=== PATIENT | male | born 1930 | race Caucasian/White ===

== ENCOUNTER → 2017-06-23 | Outpatient (CLI) | payer MEDICARE ==
[2017-06-23 12:52] LABS: HCT 43.3 % (39.0-53.0); HGB 13.3 gm/dL (13.0-17.5); Hypochromasia Slight; MCH 30.9 pg (25.0-35.0); MCHC 30.8 g/dL (31.0-37.0); MCV 100.4 fL (80.0-100.0); Macrocytosis Slight; Mean Platelet Volume 8.1; Platelet Count 180 k/uL (150-450); RBC 4.31 m/uL (4.30-5.90); RDW 14.3 % (11.5-15.5); WBC 5.5 k/uL (3.8-10.6)
[2017-06-23 12:55] LABS: Calcium 9.2 mg/dL (8.4-10.2); Potassium 5.2 mmol/L (3.5-5.1)
== END | disposition home or self-care (01) ==
LOC: LABWHC1 12:01
PROVIDERS: ATTEND Internal Medicine Clinical Cardiac Electrophysiology
DX: I50.9 Heart failure, unspecified (principal)
CPT/HCPCS: 36415; 80048; 85027

== ENCOUNTER 2017-06-24 06:13 | Day surgery (SDC) | payer MEDICARE ==
[2017-06-23 09:35] VITALS: BMI 29.9
[~2017-06-24 06:13] MED LIST: ceFAZolin 1,000 MG in SODIUM CHLORIDE 0.9% IRRIGATIO 250 ML IRRIGATION ONE; ceFAZolin IN SWFI 2 GM/20 ML SYRINGE IVP ONE
[2017-06-24] MEDS ORDERED: LACTATED RINGERS 1,000 ML IV SCH (06:15)
[2017-06-24] MEDS ORDERED: SODIUM CHLORIDE 0.9% 500 ML IV ONE (07:22)
[2017-06-24] MEDS ORDERED: fentaNYL (PF) 50 MCG/ML 2 ML AMP ONE (07:22)
[2017-06-24] MEDS ORDERED: MIDAZOLAM 2 MG/2 ML VIAL ONE (07:22)
[2017-06-24] MEDS ORDERED: LIDOCAINE 2% INJ 20 MG/ML SQ ONE (07:53)
--- NOTE | 2017-06-24 08:06 | P.PCN ---
Preoperative Diagnosis: Transvenous temporary pacing procedure Indication for the procedure: Severe underlying bradycardia Patient was brought to the EP lab in a fasting state. Written informed consent was obtained prior to the procedure. The right groin was prepped and draped as a protocol. A 6-Syrian sheath was placed in the right femoral vein. Via this, a temporary pacing catheter was placed in the right ventricle. Thresholds were interrogated. Temporary pacing was performed through the rest of the procedure. At the end of the entire procedure, the TVP was removed. The sheath was removed and hemostasis was assured. Patient tolerated the procedure well without any acute complications. Procedure performed Transvenous temporary pacing Anesthesia: MAC Condition: stable
[2017-06-24] MEDS ORDERED: LIDOCAINE 1% INJ 10MG/ML (20 ML MDV) SQ ONE (08:19)
[2017-06-24] MEDS: LIDOCAINE 1% INJ 10MG/ML (20 ML MDV) SQ ONE ×2 (08:25→08:37)
[2017-06-24] MEDS ORDERED: IOHEXOL 350 MG/ML 50ML BOTTLE INJ ONE (09:00)
[2017-06-24] MEDS ORDERED: HYDROcodone/APAP 5-325MG 1 EACH TAB PO PRN (10:05)
[2017-06-24] MEDS ORDERED: ACETAMINOPHEN IV (For NPO) 1,000 MG in EMPTY BAG 1 BAG IVPB ONE (10:05)
[2017-06-24] MEDS ORDERED: ACETAMINOPHEN TAB 325 MG TAB PO PRN (10:05)
[2017-06-24] MEDS: SODIUM CHLORIDE 0.9% 1,000 ML IV SCH ×2 (11:59→15:02)
[2017-06-24] MEDS: ceFAZolin IN SWFI 2 GM/20 ML SYRINGE IVP SCH ×2 (14:57→20:19)
[2017-06-24 19:37] VITALS: RESP 18
[2017-06-24] MEDS ORDERED: ATORVASTATIN 10 MG TAB PO SCH (21:00)
[2017-06-24] MEDS ORDERED: METOPROLOL SUCCINATE (ER) 25 MG TAB.ER.24H PO SCH (21:00)
[2017-06-24] MEDS ORDERED: TAMSULOSIN 0.4 MG CAP.ER.24H PO SCH (21:00)
[2017-06-24] MEDS ORDERED: LOSARTAN 25 MG TAB PO SCH (21:00)
[2017-06-24] MEDS ORDERED: DOXEPIN 10 MG CAP PO SCH (21:00)
[2017-06-25] MEDS: ceFAZolin IN SWFI 2 GM/20 ML SYRINGE IVP SCH ×2 (01:18→09:02)
[2017-06-25 04:12] VITALS: TEMP 98.1
[2017-06-25 07:58] VITALS: BP 111/57; PULSE 62
--- NOTE | 2017-06-25 08:30 | P.DS ---
Providers Attending physician: Eder Queen Primary care physician: [facility] Course: Patient is doing well. Minimal tenderness and pain over the pacemaker site. No chest discomfort no breathing trouble patient is resting comfortably. On examination afebrile 98.1F, pulse rate in the 60s, blood pressure 111/57 mmHg Breath sounds are clear no rhonchi or crackles Heart sounds S1-S2 soft no murmurs or gallops Abdomen soft nontender Impression Complete heart block, bradycardia, pacemaker dependent Cardio myopathy Congestive heart failure, systolic Status post upgrade to a biventricular device for management of heart failure and bradycardia Plan Stop oral potassium and start spironolactone 25 mg by mouth daily and discharged home after completion of IV antibiotics and pacemaker interrogation. Follow-up with Dr. Gomez Follow-up with device clinic in 5 days Plan - Discharge Summary Discharge Rx Participant: No New Discharge Prescriptions: New Spironolactone [Aldactone] 25 mg PO BID #30 tablet Discontinued Potassium Chloride [K-Tab ER] 10 meq PO DAILY No Action Alfuzosin HCl [Uroxatral ER] 10 mg PO HS Simvastatin [Zocor] 10 mg PO HS Aspirin 81 mg PO DAILY Furosemide [Lasix] 20 mg PO DAILY Metoprolol Succinate (ER) [Toprol Xl] 25 mg PO HS Losartan [Cozaar] 25 mg PO HS Famotidine [Pepcid] 20 mg PO DAILY Doxepin [SINEquan] 10 mg PO HS Docusate [Colace] 100 mg PO DAILY Discharge Medication List Alfuzosin HCl [Uroxatral ER] 10 mg PO HS 04/08/16 [History] Aspirin 81 mg PO DAILY 04/08/16 [History] Furosemide [Lasix] 20 mg PO DAILY 04/08/16 [History] Simvastatin [Zocor] 10 mg PO HS 04/08/16 [History] Losartan [Cozaar] 25 mg PO HS 05/26/17 [History] Metoprolol Succinate (ER) [Toprol Xl] 25 mg PO HS 05/26/17 [History] Docusate [Colace] 100 mg PO DAILY 06/23/17 [History] Doxepin [SINEquan] 10 mg PO HS 06/23/17 [History] Famotidine [Pepcid] 20 mg PO DAILY 06/23/17 [History] Spironolactone [Aldactone] 25 mg PO BID #30 tablet 06/24/17 [Rx] Follow up Appointment(s)/Referral(s): Angelita Pierson MD [STAFF PHYSICIAN] - 3 Weeks Activity/Diet/Wound Care/Special Instructions: PATIENT EDUCATION MATERIAL Instructions following a heart rhythm device implant. 1. Keep dressing DRY for 5 DAYS. You may cover the area with Saran or Cling Wrap, prior to a shower. 2. The dressing will be removed in the Device Clinic @ [facility]. Absorbable sutures were used to close the wound. 3. Avoid raising the [left] arm above the shoulder level. [4 week restriction] 4. Avoid arm movements, like backscratching, rubbing the head, or pulling on a cord. (4 weeks restriction) 5. Gentle range of motion movements of the shoulder, closest to the incision should be performed to avoid a frozen shoulder. (Pendulum exercises of the shoulder) 6. The opposite arm may be used freely. 7. Avoid driving for 7 days. 8. Avoid activities such as golfing, swimming, weed whacking, lifting more than 10 pounds weight, bowling, gymnastics and weight training/lifting. (6 weeks restriction) 9. Activities such as wood chopping with an axe, pull-ups in the gymnasium, power lifting, arc-welding, being close to home induction cooktops will always be a problem. 10. Arm sling is a mere reminder not to raise the arm above the head. However you do not need to keep the arm completely immobilized. Your free to move the arm and use it and for normal activities. In case of any problems, please call [facility], [place], @ [phone], Attention: Device Clinic Follow-up with Dr. Pierson as scheduled Follow-up the device clinic in 5 days Changes in medications include Stop oral potassium Start spironolactone 25 mg by mouth daily Continue all other medications unchanged Discharge Disposition: HOME SELF-CARE
[2017-06-25] MEDS ORDERED: ASPIRIN 81 MG PO SCH (09:00)
[2017-06-25] MEDS ORDERED: FAMOTIDINE 20 MG TAB PO SCH (09:00)
[2017-06-25] MEDS ORDERED: SPIRONOLACTONE 25 MG TAB PO SCH (09:00)
[2017-06-25] MEDS ORDERED: FUROSEMIDE 20 MG TAB PO SCH (09:00)
--- NOTE | 2017-06-25 10:36 | XR ---
EXAMINATION TYPE: XR chest 2V DATE OF EXAM: 06/25/2017 COMPARISON: 03/23/2017 INDICATION: Lead placement check TECHNIQUE: Frontal and lateral views of the chest are obtained. FINDINGS: The heart size is normal. Cardiomediastinal silhouette is stable. 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 The pulmonary vasculature is normal. The lungs are clear. No pneumothorax is evident. Some subtle blunting of the right costophrenic angl e suggesting a minimal right pleural effusion is not excluded. This appears to be present on the late ral projection. A pacemaker is placed over the left chest. An orthogonal need is present. New pacemaker lead is prese nt. IMPRESSION: 1. No pneumothorax post pacemaker placement. 2. Very minimal right pleural effusion is not excluded.
--- NOTE | 2017-06-26 09:42 | P.PCN ---
Date of Procedure: 06/24/17 Preoperative Diagnosis: Patient underwent EP procedure under conscious sedation/moderate sedation, monitoring of the level of consciousness and physiologic parameters including but not limited to vital signs and oxygenation. Patient tolerated the procedure well without any acute complications. Start time: 075 Stop time: 09 Condition: stable
--- NOTE | 2017-06-26 15:22 | PCN ---
PROCEDURE NOTE Mr. Wilson is an 87-year-old, male patient with history of complete heart block and congestive heart failure with cardiomyopathy who was brought in for upgrade to biventricular pacemaker. After is placed and antibiotics were administered again, an incision was made directly over the previous surgical site and carried down to the level of the generator. The generator was explanted. Axillary vein access was obtained. The coronary sinus was accessed. LV lead was placed in the lateral vein and a [employer] lead was implanted, 75 cm model #1456Q, serial #[id number]. The pacing impedance was 1075 ohms, pacing threshold 0.4 V at 0.5 milliseconds. 10 V test negative. Right atrial and right ventricular leads were interrogated, these are chronic leads. They were then connected to the new generator ([employer], model #[id number], serial #[id number]. The leads and generator were placed in the subfascial pocket and the wound was closed in 3 layers and dressed per protocol. The was removed the end of the procedure. RESULTS: Successful upgrade to a biventricular pacemaker for management of heart failure and cardiomyopathy in this patient with bradycardia and pacemaker dependency for complete heart block. MMODL / IJN: [id number] /
== END 2017-06-25 11:32 | disposition home or self-care (01) ==
LOC: CATHEP 06:13 → 3OBS 09:42 → CATHEP 06-25 11:32
PROVIDERS: ATTEND Internal Medicine Clinical Cardiac Electrophysiology
DX: I44.2 Atrioventricular block, complete (principal); I49.5 Sick sinus syndrome; I42.8 Other cardiomyopathies; I50.23 Acute on chronic systolic (congestive) heart failure; I48.1 Persistent atrial fibrillation; Z95.1 Presence of aortocoronary bypass graft; Z87.891 Personal history of nicotine dependence; Z79.82 Long term (current) use of aspirin; Z79.899 Other long term (current) drug therapy; Z45.018 Encounter for adjustment and management of other part of cardiac pacemaker
CPT/HCPCS: 33225; 33229; 84132; 71046; C1894; C1769 ×5; C1892; C1730; C1900; C2621; J2001 ×2; J2250; J0690 ×3; J3010; Q9967